=== PATIENT | male | born 1985 | race African-American/Black ===

== ENCOUNTER 2021-03-10 18:06 | Emergency (ER) | payer SELFPAY ==
[~2021-03-10] VITALS: Ht 175.3 cm; Wt 65.8 kg
[2021-03-10 18:16] VITALS: BP 112/65
[2021-03-10] MEDS ORDERED: SULF1TAB48 PO (18:17)
[2021-03-10] MEDS ORDERED: CEPH500C2 PO (18:17)
[2021-03-10] MEDS ORDERED: TDAP [DIPH/PERTUSSIS/TET] 0.5 ML VIAL IM ONE ×2 (18:18→18:30)
--- NOTE | 2021-03-10 18:23 | NUR ---
WOUND CLEANSED, PAT DRY, APPLIED TRIPLE ANTIBIOTIC OINTMENT AND COVERED WITH DRY DRESSING. Patient discharged to home in stable condition. Written and verbal after care instructions given. Patient verbalizes understanding of instruction.
== END 2021-03-10 18:37 | disposition home or self-care (01) ==
LOC: ER 18:09
DX: S60.862A Insect bite (nonvenomous) of left wrist, initial encounter (principal); L08.9 Local infection of the skin and subcutaneous tissue, unspecified; Z60.2 Problems related to living alone; W57.XXXA Bitten or stung by nonvenomous insect and other nonvenomous arthropods, initial encounter; Y93.89 Activity, other specified; Y92.89 Other specified places as the place of occurrence of the external cause; Y99.8 Other external cause status
CPT/HCPCS: 90715

== ENCOUNTER 2021-04-05 03:23 | Inpatient (IN) | payer OTHER ==
[~2021-04-05] VITALS: Ht 175.3 cm; Wt 65.8 kg
[~2021-04-05 03:23] MED LIST: CEPH500C2 PO; SULF1TAB48 PO
[2021-04-05] MEDS ORDERED: VANCOMYCIN 1 GM in IV D5W 250 ML IV ONE (04:00)
--- NOTE | 2021-04-05 04:03 | NUR ---
BIBS TO ER EBD 3. AAOX4. NOT IN RESP DISTRESS. AMBULATORY. CAME IN FOR L HAND PAIN AND SWELLING SINCE WAKING UP YESTERDAY. DENIES ANY TRAUMA. ADMITED TO IV DRUG USE. MD WAS AT THE BEDSIDE. ORDERS RECEIVED.
[2021-04-05 04:19] LABS: BASOPHILS # (AUTO) 0.1 K/uL (0.0-0.2); BASOPHILS % (AUTO) 1.3 % (0.0-2.0); EOSINOPHILS % (AUTO) 1.5 % (0.0-6.0); HEMATOCRIT 43 % (39-51); HEMOGLOBIN 14.3 g/dL (13.5-17.5); LYMPHOCYTES # (AUTO) 1.9 K/uL (0.8-4.8); LYMPHOCYTES % (AUTO) 19.1 % (20.0-44.0); MEAN CORPUSCULAR HGB CONC 33 g/dl (31.0-36.0); MEAN CORPUSCULAR VOLUME 98 fL (80-96); MONOCYTES # (AUTO) 0.9 K/uL (0.1-1.30); MONOCYTES % (AUTO) 9.1 % (2.0-12.0); NEUTROPHILS # (AUTO) 6.8 K/uL (1.8-8.9); PLATELET COUNT (AUTO) 335 K/uL (150-450); RED BLOOD CELL COUNT(AUTO) 4.37 MIL/uL (4.5-6.0); WHITE BLOOD COUNT (AUTO) 9.9 K/uL (4.3-11.0)
--- NOTE | 2021-04-05 04:20 | NUR ---
covid swab sent to lab
[2021-04-05] MEDS ORDERED: VANCOMYCIN 1 GM VIAL ONE (04:25)
--- NOTE | 2021-04-05 04:25 | NUR ---
iv site rac #20 placed, vanco infusing as ordered
[2021-04-05 04:43] LABS: CALCIUM, SERUM 9.7 mg/dL (8.5-10.1); CREATININE 1.3 mg/dL (0.6-1.3); POTASSIUM 4.6 mmol/L (3.5-5.1)
--- NOTE | 2021-04-05 04:55 | NUR ---
Paged dr Jos Easley for hand surgeon consult per Dr. Fierro's order. Awaiting for his call back
--- NOTE | 2021-04-05 05:08 | NUR ---
CALLED [facility] INTAKE FOR HIGHER LEVEL OF CARE AND POSSIBLE HAND SURGEON. PER MILON THEY DON'T EVEN HAVE A MS BED AVAILABLE.
--- NOTE | 2021-04-05 05:19 | NUR ---
CALLED [facility] AND SPOKE TO PEG FOR POSSIBLE TRANSFER. THEY'RE OUT OF CAPACITY.
--- NOTE | 2021-04-05 05:42 | NUR ---
CALLED [facility] FOR HIGHTER LEVEL OF CARE. PER NELDA THEY'RE AT THEY'RE CAPACITY.
--- NOTE | 2021-04-05 05:52 | NUR ---
CALLED [facility] AND SPOKE TO YANIQUE. NO BED AVAILABLE BUT THEY CAN START THE CASE.
--- NOTE | 2021-04-05 06:04 | NUR ---
FAXED CLINICALS AND FACE SHEET TO [facility]
--- NOTE | 2021-04-05 06:10 | NUR ---
CALLED [facility] TRANSFER LINE AND SPOKE TO MIKEL. REQUESTING A PICTURE OF THE HAND TO START THE CASE. WILL COLELCTE ALL THE INFO AND WILL FAX IT OVER
--- NOTE | 2021-04-05 06:38 | NUR ---
FAXED FACE SHEET AND CLINICALS TO [facility],
--- NOTE | 2021-04-05 07:14 | NUR ---
FAXED CLINICALS TO [facility]. FAX [phone]
--- NOTE | 2021-04-05 07:39 | NUR ---
RECEIVED A CALL FROM EMIR AT [facility] TRANSFER, HE STATED [facility] IS AT CAPACITY, UNABLE TO TAKE PATIENT AT THIS TIME.
--- NOTE | 2021-04-05 08:18 | NUR ---
DR MCGOWAN CALLED AND SPOKE WITH DR MORROW
--- NOTE | 2021-04-05 08:21 | NUR ---
PANEL HARDSCAPE FOREMAN PAGED
--- NOTE | 2021-04-05 08:33 | NUR ---
CALL BACK FROM [facility],SPOKE WITH DR MORROW
[2021-04-05] MEDS ORDERED: MAGNESIUM HYDROXIDE 30 ML UDC PO PRN (09:00)
[2021-04-05] MEDS ORDERED: Z GUARD REMEDY 2 OZ OINT TP PRN (09:00)
[2021-04-05] MEDS ORDERED: ONDANSETRON HCL/PF 4 MG/2 ML VIAL IVP PRN (09:00)
[2021-04-05] MEDS ORDERED: HYDROCODONE/APAP 5/325MG TABLET PO PRN (09:00)
[2021-04-05] MEDS ORDERED: MAG HYDROX/AL HYDROX/SIMETH 30 ML UDC PO PRN (09:00)
[2021-04-05] MEDS ORDERED: ACETAMINOPHEN 325 MG TABLET PO PRN (09:00)
[2021-04-05] MEDS ORDERED: IV NS 0.9% 1,000 ML IV PRN (09:00)
--- NOTE | 2021-04-05 09:55 | NUR ---
BED 309-2
--- NOTE | 2021-04-05 10:15 | NUR ---
MS RN ADMITTING NOTES RECEIVED ADMISSION FROM ER. PATIENT MEDICALLY STABLE A/O X4, ABLE TO MAKE NEEDS KNOWN. PATIENT ON ROOM AIR; BREATHING EVEN AND UNLABORED, NO SOB NOTED. RAC IV ACCESS PRESENT AND INTACT. SAFETY PRECAUTIONS IN PLACE; BED IN LOW POSITION AND LOCKED, RAILS UP X2, CALL LIGHT WITHIN REACH. WILL CONTINUE TO MONITOR.
--- NOTE | 2021-04-05 10:30 | NUR ---
SS note: SS consult requested for substance abuse. SS will follow up at a later time.
--- NOTE | 2021-04-05 11:28 | NUR ---
WOUND CARE CONSULT: PT PRESENTS WITH LEFT MIDDLE FINGER SWELLING AND TENDERNESS, PRESENT ON ADMISSION. NO DRAINAGE NOTED. DR PECK WAS CONSULTED. WILL SEE PRN.
--- NOTE | 2021-04-05 11:37 | NUR ---
MS RN NOTES PATIENT COMPLAINING OF PAIN IN HIS LEFT MIDDLE FINGER AND REQUESTING PRN PAIN MEDICATION. PRN NORCO [phone] ADMINISTERED. WILL REASSESS.
[2021-04-05 12:00] VITALS: BP 138/86
[2021-04-05 16:00] VITALS: BP 118/76
[2021-04-05] MEDS ORDERED: VANCOMYCIN 1 GM in IV D5W 250 ML IV SCH (17:00)
--- NOTE | 2021-04-05 19:11 | NUR ---
CHUTE GREASER CLOSING NOTE PATIENT IN BED, A/O X3, ON ROOM AIR . PATIENT IS BREATHING EVENLY AND NONLABORED. NO SIGNS OF DISTRESS NOTED, PATIENT DENIED PAIN OR DISCOMFORT AT THIS TIME. PATIENT HAS IV ACCESS ON RAC # 18 GAUGE, PATENT AND INTACT. ALL NEEDS ATTENDED. SAFETY MEASURES IN PLACE BED LOW LOCK AND CALL LIGHT WITHIN REACH. WILL ENDORSE TO ONCOMING SHIFT.
--- NOTE | 2021-04-05 19:30 | NUR ---
RN OPENING NOTE PATIENT IN BED, EYES CLOSED. EASILY AWAKENED. PATIENT'S BREATHING EVEN AND UNLABORED. A/O X 4, ABLE TO MAKE NEEDS KNOWN. RAC 18 G PATENT AND INTACT. SAFETY MEASURES IN PLACE: BED LOCKED AND IN LOWEST POSITION, SIDE RAILS UP, CALL LIGHT WITHIN REACH. WILL MONITOR PATIENT CLOSELY.
[2021-04-05] MEDS ORDERED: CEFTRIAXONE 1 G in IV D5W 50 ML IV SCH (20:00)
--- NOTE | 2021-04-05 20:05 | NUR ---
RN NOTE: AMA PATIENT SEEN WALKING TOWARDS THE ELEVATOR AND GOT ON THE ELEVATOR, HELD THE ELEVATOR OPEN AND ASKED PATIENT WHERE HE WAS GONNA GO, HE STATES "I'M NOT STAYING HERE, I'M NOT GONNA HERE, I'M GOING TO [facility]. I ASKED IF I COULD SEE HIS LEFT ARM, WHICH IS COVERED WITH A WHITE TOWEL, PATIENT STATES "DON'T YOU DARE TOUCH ME", CHARGE NURSE WILIAM PRESENT WELL. RAC 18 G NOT OBSERVED ON THE PATIENT AND CATHETER FOUND ON THE BED. WILL INFORM NURSING FLUME RIDE OPERATOR AND SECURITY.
--- NOTE | 2021-04-05 20:10 | NUR ---
NURSING CENTERLESS GRINDING MACHINE ADJUSTER NOTIFIED OF PATIENT LEAVING AMA
[2021-04-06] MEDS ORDERED: PANTOPRAZOLE 40 MG TABLET.DR PO SCH (07:30)
== END 2021-04-05 20:05 | disposition left against medical advice (07) | DRG 383 ==
LOC: ER 03:25 → TRANSITION 08:39 → MED 09:57
PROVIDERS: ADMIT Registered Nurse; ATTEND Registered Nurse
DX: L03.114 Cellulitis of left upper limb (principal); F15.10 Other stimulant abuse, uncomplicated; M65.842 Other synovitis and tenosynovitis, left hand; Z59.0 Homelessness; Z20.822 Contact with and (suspected) exposure to COVID-19; L03.012 Cellulitis of left finger
CPT/HCPCS: 36415; 73140-TC; 80048-TC; 85025-TC; 85652-TC; 86140-TC; 87040-TC; 87081-TC; C9803; G0378; J0696; J2405; J3370; J7030; J7060

== ENCOUNTER 2021-12-06 12:01 | Emergency (ER) | payer SELFPAY ==
[~2021-12-06] VITALS: Ht 175.3 cm; Wt 65.8 kg
--- NOTE | 2021-12-06 12:05 | NUR ---
BIBRA 39 AND [employer] FROM [facility] C/O SHARP CHEST PAIN NON RADIATING STARTED 30MINS BEEF TRIMMER. 1 SPRAY OF NTG AND 324 ASPIRIN GIVEN BY EMS BEEF TRIMMER. PT STATED THAT HIS CHEST PAIN IS CURRENTLY 4/10, WAS 6/10 PREVIOUSLY AND FEELS A LITTLE NAUSEOUS. NOT SHORTNESS OF BREATH NOTED. DR MORROW AT BEDSIDE.
--- NOTE | 2021-12-06 12:11 | NUR ---
IV ESTABLISHED R AC 20G. LABS DRAWN AND COLLECTED AT BEDSIDE.
[2021-12-06 12:34] LABS: BASOPHILS # (AUTO) 0.1 K/uL (0.0-0.2); BASOPHILS % (AUTO) 0.9 % (0.0-2.0); HEMATOCRIT 50 % (39-51); HEMOGLOBIN 16.8 g/dL (13.5-17.5); LYMPHOCYTES # (AUTO) 2.1 K/uL (0.8-4.8); LYMPHOCYTES % (AUTO) 34.5 % (20.0-44.0); MEAN CORPUSCULAR HGB CONC 33 g/dl (31.0-36.0); MEAN CORPUSCULAR VOLUME 98 fL (80-96); MONOCYTES # (AUTO) 0.5 K/uL (0.1-1.30); MONOCYTES % (AUTO) 7.4 % (2.0-12.0); NEUTROPHILS # (AUTO) 3.5 K/uL (1.8-8.9); NEUTROPHILS % (AUTO) 56.2 % (43.0-81.0); PLATELET COUNT (AUTO) 280 K/uL (150-450); RED BLOOD CELL COUNT(AUTO) 5.16 MIL/uL (4.5-6.0); WHITE BLOOD COUNT (AUTO) 6.2 K/uL (4.3-11.0)
[2021-12-06 12:41] LABS: CALCIUM, SERUM 9.4 mg/dL (8.5-10.1); CARBON DIOXIDE 29 mmol/L (21-32); CHLORIDE 102 mmol/L (98-107); CREATININE 1.3 mg/dL (0.6-1.3); GLUCOSE 102 mg/dL (74-106); POTASSIUM 4.6 mmol/L (3.5-5.1); SODIUM SERUM 137 mmol/L (136-145); UREA NITROGEN, BLOOD 15 mg/dL (7-18)
--- NOTE | 2021-12-06 13:06 | NUR ---
repeat troponin at 1400
--- NOTE | 2021-12-06 16:03 | NUR ---
IV removed. Catheter intact and site benign. Pressure and 4x4 applied to site. No bleeding noted.Patient discharged to home in stable condition. Written and verbal after care instructions given. Patient verbalizes understanding of instruction.
[2021-12-06 16:04] VITALS: BP 122/82
== END 2021-12-06 16:04 ==
LOC: EDUNIT# 12:01 → ER 12:06
DX: R07.89 Other chest pain (principal); Z60.2 Problems related to living alone
CPT/HCPCS: 36415; 71045-TC; 80048-TC; 84484-TC; 85025-TC